=== PATIENT | male | born 1980 | race Caucasian/White ===

== ENCOUNTER → 2017-07-11 | Outpatient (CLI) | payer SELFPAY ==
[2015-08-05 17:21] VITALS: BP 138/87
[~2017-07-11] MED LIST: ED BACLOFEN10 MG PO; NORCO 325 MG-51 TA1 PO
== END ==
LOC: LAB 14:06
DX: R10.811 Right upper quadrant abdominal tenderness (principal); R11.0 Nausea; R39.89 Other symptoms and signs involving the genitourinary system

== ENCOUNTER 2018-01-07 11:53 | Emergency (ER) | payer SELFPAY ==
[~2018-01-07] VITALS: Ht 175.3 cm; Wt 75.0 kg
[2018-01-07] MEDS ORDERED: PROAIR HFA0.09 MG/AC IH ×2 (12:02→12:34)
[2018-01-07] MEDS ORDERED: ZITHROMAX Z PA250 MG PO (12:34)
[2018-01-07] MEDS ORDERED: PREDNISONE10 MG PO (12:34)
[2018-01-07 12:47] VITALS: BP 118/82
== END 2018-01-07 12:51 | disposition home or self-care (01) ==
LOC: ED 11:53
DX: J45.909 Unspecified asthma, uncomplicated (principal); J06.9 Acute upper respiratory infection, unspecified; F17.200 Nicotine dependence, unspecified, uncomplicated

== ENCOUNTER 2024-07-29 12:47 | Emergency (ER) | payer OTHER ==
[~2024-07-29] VITALS: Ht 175.3 cm; Wt 79.5 kg
[~2024-07-29 12:47] MED LIST changes: +AMOXICILLIN AND1 TA2 PO; +PREDNISONE10 MG PO; +PROAIR HFA0.09 MG/AC IH; +ZITHROMAX Z PA250 MG PO; +ZOFRAN ODT4 MG PO
[2024-07-29 12:53] VITALS: BP 135/97
[2024-07-29] MEDS ORDERED: Lidocaine/EPINEPHrine/Tetracaine Topical Gel 3 ML SYRINGE TOP ONE (13:00)
[2024-07-29] MEDS ORDERED: Topical Skin Adhesive 1 EACH (0.5 ML) TOP ONE (13:00)
== END 2024-07-29 13:15 | disposition home or self-care (01) ==
LOC: ED 12:47
DX: S61.112A Laceration without foreign body of left thumb with damage to nail, initial encounter (principal); F17.210 Nicotine dependence, cigarettes, uncomplicated; W26.0XXA Contact with knife, initial encounter; Y93.G3 Activity, cooking and baking
CPT/HCPCS: 90715